=== PATIENT | female | born 1935 | race African-American/Black ===

== ENCOUNTER 2016-12-12 11:55 | Emergency (ER) | payer OTHER ==
[~2016-12-12] VITALS: Ht 170.2 cm; Wt 57.2 kg
[~2016-12-12 11:55] MED LIST: ASPI-110 PO; ATOR40TA16 PO; CALC1TAB26 PO; CARD120C4 PO; FERR1TAB36 PO; FLUT50SP EACH NARE; LEVO25TA4 PO; LORA10TA PO; LOSA50TA2 PO; NYST15T TOPICAL; OMEP20TA PO; VITA500T4 PO
[2016-12-12 12:22] VITALS: BP 134/75; PULSE 84; RESP 16; TEMP 98.2; O2SAT 98
[2016-12-12] MEDS ORDERED: IBUP400T20 PO (13:45)
[2016-12-12] MEDS ORDERED: PROMETHAZINE INJ 25 MG/ML VIAL IM ONE (13:45)
[2016-12-12] MEDS ORDERED: NORC5TAB PO (13:45)
[2016-12-12] MEDS ORDERED: MORPHINE SULFATE 4 MG/ML INJ IM ONE (13:45)
[2016-12-12] MEDS ORDERED: CYCL1TAB29 PO (13:45)
[2016-12-12] MEDS ORDERED: KETOROLAC TROMETHAMINE 60 MG/2 ML (IM) VIAL IM ONE (13:45)
--- NOTE | 2016-12-12 13:45 | PD ---
HPI Chief Complaint: Back/ Neck Pain or Injury Time Seen by Provider: 13:27 Travel History International Travel<30 days: No Contact w/Intl Traveler<30days: No Traveled to known affect area: No History of Present Illness HPI The patient is a 81-year-old [place] female who presents emergency department for neck pain. The patient states she developed neck pain 1 week ago which worsened this morning. The pain is located over the left aspect of the neck, does not radiate to the jaw, posterior head, or arm. The pain is worse when she moves her head to the left, right, and upwards. She denies any trauma to the head or neck and denies any associated fever, chills, or sweats. She denies any company earache, sore throat, or difficulty swallowing. Symptoms are mild to moderate, worsen movement, and alleviated at rest. PFSH Past Medical History Cardiovascular Problems: Yes Hypertension: Yes Thyroid Disease: Yes Influenza Vaccination: Yes Social History Alcohol Use: No Tobacco Use: No Substance Use: No Allergies-Medications (Allergen,Severity, Reaction): Coded Allergies: No Known Allergies (Unverified , 12/12/16) Reported Meds & Prescriptions Reported Meds & Active Scripts Active Cardizem CD 24 HR (Diltiazem CD 24 HR) 120 Mg Caper 120 Mg PO DAILY Reported Calcium 600+D3 (Calcium Carbonate-Cholecalciferol) 600-800 Mg-Unit Tab 1 Tab PO BID Levothyroxine (Levothyroxine Sodium) 25 Mcg Tab 25 Mcg PO DAILY Vitamin B-12 (Cyanocobalamin) 500 Mcg Tab 500 Mcg PO DAILY Atorvastatin (Atorvastatin Calcium) 40 Mg Tab 40 Mg PO HS Losartan-Hydrochlorothiazide 50-12.5 Mg Tab 1 Tab PO DAILY Omeprazole 20 Mg Tab 20 Mg PO DAILY Aspirin 81 (Aspirin) 81 Mg Tabdr 81 Mg PO DAILY Review of Systems Except as stated in HPI: all other systems reviewed are Neg HENT: Positive: Neck Pain, No: Headaches, Sore Throat, Neck Stiffness, Earache Cardiovascular: No: Chest Pain or Discomfort Respiratory: No: Shortness of Breath Gastrointestinal: No: Nausea, Vomiting Neurologic: No: Focal Abnormalities Physical Exam Narrative GENERAL: Awake, alert, nontoxic-appearing 81 year-old female who appears her stated age and is in no acute respiratory distress. SKIN: Focused skin assessment warm/dry. HEAD: Atraumatic. Normocephalic. EYES: No injection or drainage. ENT: No nasal bleeding or discharge. Mucous membranes pink and moist. Upper and lower dentures in place. TMs are translucent and EACs are clear bilaterally. NECK: Trachea midline. No JVD. Tenderness to palpation over the left sternocleidomastoid. No tenderness of the left trapezius or cervical vertebrae. No meningeal signs. Pain is elicited with rotation of the neck. CARDIOVASCULAR: Regular rate, no murmur. RESPIRATORY: No accessory muscle use. Clear to auscultation. Breath sounds equal bilaterally. MUSCULOSKELETAL: No obvious deformities. No clubbing. No cyanosis. No edema. NEUROLOGICAL: Awake and alert. No obvious cranial nerve deficits. Motor grossly within normal limits. Normal speech. Nonfocal. PSYCHIATRIC: Appropriate mood and affect; insight and judgment normal. Data Data Last Documented VS Vital Signs Date Time Temp Pulse Resp B/P (MAP) Pulse Ox O2 Delivery O2 Flow Rate FiO2 12/12/16 12:22 98.2 84 16 134/75 (94) 98 Orders Orders Morphine Inj (Morphine Inj) (12/12/16 13:45) Promethazine Inj (Phenergan Inj) (12/12/16 13:45) Ketorolac Inj (Toradol Inj) (12/12/16 13:45) Apply Cervical Collar (12/12/16 13:38) MDM Medical Decision Making Medical Screen Exam Complete: Yes Emergency Medical Condition: Yes Medical Record Reviewed: Yes Differential Diagnosis Differential diagnosis includes sternocleidomastoid strain, cervical strain, carotid dissection, angina, cervical lymphadenopathy, tonsillitis, otitis media , serous otitis, trigeminal neuralgia. Narrative Course the patient's physical examination is consistent with musculoskeletal pain Inc. and left sternal cleidomastoid. I considered carotid dissection, however, do not believe the patient has acute carotid dissection. The patient was boiling off winder morphine, Phenergan, and Toradol IM. She will be discharged home as all cervical collar, anti-inflammatories, muscle relaxers, and pain medications. She is advised to follow-up with her primary physician and return if symptoms worsen or progress. Diagnosis Primary Impression: Strain of sternocleidomastoid muscle Qualified Codes: S16.1XXA - Strain of muscle, fascia and tendon at neck level , initial encounter Patient Instructions: General Instructions Additional Instructions: Apply heat to the affected area. Medications as directed. Cervical soft collar as needed. Follow-up with her primary physician. Return if symptoms worsen or progress. Med/Other Pt SpecificInfo: Prescription(s) given Scripts Cyclobenzaprine (Flexeril) 10 Mg Tab 10 MG PO TID for Muscle Spasm, #30 TAB 0 Refills Prov: Ludwig Hanson MD 12/12/16 Hydrocodone-Acetaminophen (Delta) 5-325 mg Tab 1 TAB PO Q6H Y for PAIN, #15 TAB 0 Refills Prov: Ludwig Hanson MD 12/12/16 Ibuprofen (Ibuprofen) 400 Mg Tab 400 MG PO Q6H Y for PAIN SCALE 1 TO 10, #20 TAB 0 Refills Prov: Ludwig Hanson MD 12/12/16 Disposition: 01 DISCHARGE HOME Condition: Stable Ludwig Hanson MD Dec 12, 2016 13:45
[2016-12-12 14:25] VITALS: BP 130/70; PULSE 80; RESP 18; O2SAT 98
== END 2016-12-12 14:26 | disposition home or self-care (01) ==
LOC: PHED 11:55 → PHEFT 14:26
DX: S16.1XXA Strain of muscle, fascia and tendon at neck level, initial encounter (principal); X58.XXXA Exposure to other specified factors, initial encounter; I10 Essential (primary) hypertension; E07.9 Disorder of thyroid, unspecified
CPT/HCPCS: 96372; 99284; J1885; J2270; J2550